=== PATIENT | female | born 1960 | race Caucasian/White ===

== ENCOUNTER 2017-04-25 21:12 | Emergency (ER) | payer BC ==
[~2017-04-25 21:12] MED LIST: ASPIRIN81 MG PO; CLARITIN10 MG PO; COREG12.5 MG PO; COREG6.25 MG PO; EFFEXOR XR150 MG PO; FETZIMA80 MG PO; KLONOPIN0.5 MG PO; KLONOPIN1 MG PO; LIPITOR40 MG PO; LUNESTA1 MG PO; MOBIC15 MG PO; NORVASC5 MG PO; OS-CAL 500+D31 EAC1 PO; PRINIVIL10 MG PO; PRINIVIL5 MG PO; REXULTI2 MG PO; SEROQUEL50 MG PO; THERA M PLUS T1 EACH PO; TUMS500 MG PO
== END 2017-04-25 23:25 | disposition short-term general hospital (02) ==
LOC: ER 21:12
DX: F41.9 Anxiety disorder, unspecified (principal); R11.2 Nausea with vomiting, unspecified; Z88.0 Allergy status to penicillin; Z88.2 Allergy status to sulfonamides
CPT/HCPCS: J1885; J2060; J2405